=== PATIENT | female | born 1995 | race Caucasian/White ===

== ENCOUNTER 2017-03-10 02:44 | Emergency (ER) | payer OTHER ==
[~2017-03-10 02:44] MED LIST: ASPIR-LOW81 M1 PO
[2017-03-10 05:30] VITALS: BP 124/72
== END 2017-03-10 04:30 | disposition home or self-care (01) ==
LOC: ED 02:44
DX: N83.202 Unspecified ovarian cyst, left side (principal); N70.11 Chronic salpingitis

== ENCOUNTER 2017-08-07 14:30 | Emergency (ER) | payer SELFPAY ==
[~2017-08-07] VITALS: Ht 160 cm; Wt 93.4 kg
[2017-08-07 16:45] VITALS: BP 122/71
== END 2017-08-07 16:45 | disposition home or self-care (01) ==
LOC: ED 14:30
DX: J06.9 Acute upper respiratory infection, unspecified (principal); R11.10 Vomiting, unspecified

== ENCOUNTER 2019-09-09 02:42 | Emergency (ER) | payer SELFPAY ==
[~2019-09-09] VITALS: Ht 160 cm; Wt 98.9 kg
[2019-09-09 03:04] VITALS: Ht 160 cm; Wt 98.9 kg
[2019-09-09 04:15] LABS: BASOPHIL % 0.9 % (0-2); PLATELET COUNT 302 x10^3mcL (130-400); RED CELL DISTRIBUTION WIDTH 13.1 % (11.5-14.5)
[2019-09-09 04:27] LABS: CARBON DIOXIDE 28.2 mmol/L (21-32); CHLORIDE SERUM 104 mmol/L (98-107); CREATININE SERUM 0.7 mg/dL (0.6-1.0); GFR1 > 60 mL/min; GLUCOSE SERUM 130 mg/dL (74-106); POTASSIUM SERUM 3.4 mmol/L (3.5-5.1); SODIUM SERUM 141 mmol/L (136-145)
[2019-09-09 04:33] LABS: ALBUMIN 3.6 g/dL (3.4-5.0); ALKALINE PHOSPHATASE 89 U/L (46-116); ALT/SGPT 74 U/L (14-59); AST/SGOT 31 U/L (15-37); BILIRUBIN TOTAL 0.3 mg/dL (0.20-1.00); LIPASE 131 IU/L (73-393); TOTAL PROTEIN, SERUM 7.4 g/dL (6.4-8.2)
[2019-09-09 08:35] VITALS: BP 102/48
== END 2019-09-09 08:35 | disposition home or self-care (01) ==
LOC: ED 02:42
DX: K29.70 Gastritis, unspecified, without bleeding (principal); J45.909 Unspecified asthma, uncomplicated
CPT/HCPCS: J2270; J2405; J7030